=== PATIENT | female | born 1965 | race Two or more races ===

== ENCOUNTER 2018-10-21 14:46 | Emergency (ER) | payer OTHER ==
[~2018-10-21] VITALS: Ht 162.6 cm; Wt 81.6 kg
[2018-10-21] MEDS ORDERED: CELEXA40 MG (14:56)
== END 2018-10-21 16:56 | disposition home or self-care (01) ==
LOC: ER 14:46
DX: S90.02XA Contusion of left ankle, initial encounter (principal); S80.01XA Contusion of right knee, initial encounter; W18.39XA Other fall on same level, initial encounter; Y93.89 Activity, other specified; Y92.098 Other place in other non-institutional residence as the place of occurrence of the external cause; Y99.8 Other external cause status